=== PATIENT | female | born 1970 | race Caucasian/White ===

== ENCOUNTER 2017-03-30 15:16 | Emergency (ER) | payer BC, OTHER ==
[~2017-03-30] VITALS: Ht 165.1 cm; Wt 61.2 kg
[~2017-03-30 15:16] MED LIST: ADDERALL XR 2020 MG PO; FLEXERIL PO; TOPAMAX 25 MG T25 M1 PO
[2017-03-30] MEDS ORDERED: LEVONORGESTREL1 EAC1 PO (15:21)
[2017-03-30] MEDS ORDERED: TRAMADOL 50 MG50 MG PO (16:08)
[2017-03-30] MEDS ORDERED: MOBIC7.5 MG PO (16:08)
[2017-03-30 16:26] VITALS: BP 120/73
== END 2017-03-30 16:40 | disposition home or self-care (01) ==
LOC: ER 15:16
DX: G89.29 Other chronic pain (principal); M25.511 Pain in right shoulder; Z88.0 Allergy status to penicillin